=== PATIENT | female | born 1945 | race African-American/Black ===

== ENCOUNTER 2019-05-25 13:03 | Emergency (ER) | payer OTHER ==
--- NOTE | 2019-05-25 14:45 | RAD REPORT ---
EXAM DESCRIPTION: RAD - Wrist Left 3 View - 05/25/2019 2:12 pm CLINICAL HISTORY: Fall from standing, left wrist pain COMPARISON: None. FINDINGS: No fracture of the distal radius or ulna. No carpal bone fracture or acute finding seen. C arpal bone degenerative changes are present. Degenerative changes are present at the carpal - metacar pal articulations. Soft tissue swelling is present around the wrist joint. No foreign body identified . IMPRESSION: Degenerative changes are present without fracture of the left wrist.
--- NOTE | 2019-05-25 14:48 | ER ---
Nurse's Notes [facility] Name: Barb Garcia Age: 73 yrs Sex: Female : 1945 Arrival Date: 05/25/2019 Time: 13:08 Bed 14 Private MD: Diagnosis: Pain in left wrist Presentation: 05/25 13:11 Presenting complaint: Left wrist pain after mechanical fall from standing yesterday. hb Denies other injuries. Negative LOC. Transition of care: patient was not received from another setting of care. Onset of symptoms was May 24, 2019. Risk Assessment: Do you want to hurt yourself or someone else? Patient reports no desire to harm self or others. Initial Sepsis Screen: Does the patient meet any 2 criteria? No. Patient's initial sepsis screen is negative. Does the patient have a suspected source of infection? No. Patient's initial sepsis screen is negative. Care prior to arrival: Medication(s) given: Motrin, at 1030 today. 13:11 Method Of Arrival: Ambulatory hb 13:11 Acuity: EILEEN 4 hb Historical: - Allergies: 13:12 PENICILLINS; hb - PMHx: 13:12 Hypertension; Diabetes; hb - PSHx: 13:12 Tubal ligation; hb - Immunization history:: Adult Immunizations up to date. - Social history:: Smoking status: Patient/guardian denies using tobacco. - Ebola Screening: : No symptoms or risks identified at this time. Screenin:31 Abuse screen: Denies threats or abuse. Denies injuries from another. Nutritional ca1 screening: No deficits noted. Tuberculosis screening: No symptoms or risk factors identified. Fall Risk Fall in past 12 months (25 points). Assessment: 13:31 General: Appears in no apparent distress. comfortable, Behavior is calm, cooperative, ca1 appropriate for age. Pain: Complains of pain in lateral aspect of left hand, medial aspect of left hand, dorsum of left hand, dorsal aspect of left wrist and palmar aspect of left wrist Pain currently is 4 out of 10 on a pain scale. Pain began 1 day ago. Neuro: Level of Consciousness is awake, alert, obeys commands, Oriented to person, place, time, situation, Appropriate for age. Derm: Skin is intact, is healthy with good turgor, Skin is pink, warm \T\ dry. Musculoskeletal: Circulation, motion, and sensation intact. Capillary refill < 3 seconds, Range of motion: intact in all extremities. 14:35 Reassessment: Patient appears in no apparent distress at this time. Patient is alert, ca1 oriented x 3, equal unlabored respirations, skin warm/dry/pink. Vital Signs: 13:12 BP 142 / 82; Pulse 86; Resp 16; Temp 97.5; Pulse Ox 100% on R/A; Weight 47.63 kg; hb Height 5 ft. 6 in. (167.64 cm); Pain 7/10; 14:35 BP 139 / 78; Pulse 82; Resp 17 S; Pulse Ox 100% on R/A; ca1 13:12 Body Mass Index 16.95 (47.63 kg, 167.64 cm) hb ED Course: 13:08 Patient arrived in ED. mr 13:12 Triage completed. hb 13:12 Arm band placed on. hb 13:13 Syeda Law RN is Primary Nurse. ca1 13:24 Ricci Giraldo NP is PHCP. pm1 13:24 Jordan Saucedo MD is Attending Physician. pm1 13:31 Patient has correct armband on for positive identification. Bed in low position. Call ca1 light in reach. Side rails up X 1. Pulse ox on. NIBP on. 13:31 No provider procedures requiring assistance completed. Patient did not have IV access ca1 during this emergency room visit. 14:12 Wrist Left (3 View) XRAY In Process Unspecified. EDMS 14:15 Velcro wrist splint applied to left wrist. ca1 Administered Medications: No medications were administered Outcome: 14:47 Discharge ordered by . pm1 15:02 Discharged to home ambulatory. ca1 15:02 Condition: stable 15:02 Discharge instructions given to patient, Instructed on discharge instructions, follow up and referral plans. no drinking with medication, no driving heavy equipment, medication usage, Demonstrated understanding of instructions, follow-up care, medications, Prescriptions given X 1. 15:02 Patient left the ED. ca1 Signatures: Dispatcher [employer] EDDE SinghStacey Ricci Giraldo, PRADIP ELECT[employer]IC MOTOR TESTER ASSEMBLER pm1 Jaqueline Arauz RN RN Syeda Law RN RN ca1
--- NOTE | 2019-05-25 14:48 | EDPHYS ---
Physician Documentation [facility] Name: Barb Garcia Age: 73 yrs Sex: Female : 1945 Arrival Date: 05/25/2019 Time: 13:08 Bed 14 Private MD: ED Physician Jordan Saucedo HPI: 05/25 13:41 This 73 yrs old Black Female presents to ER via Ambulatory with complaints of Left pm1 Wrist Pain. 13:41 The patient or guardian reports pain. The complaints affect the left wrist diffusely. pm1 Context: The problem was sustained at home. Onset: The symptoms/episode began/occurred yesterday. Modifying factors: The symptoms are alleviated by narayan wrap, the symptoms are aggravated by movement. Associated signs and symptoms: Pertinent negatives: cyanosis distally, decreased sensation distally, numbness distally, tingling distally. Compartment Syndrome negative for numbness, tingling. The patient has not experienced similar symptoms in the past. The patient has not recently seen a physician. Patient fell backwards and braced fall with her left hand behind her. Presents with pain to left wrist. Denies pain anywhere else. No headache, head injury, neck pain, LOC. Historical: - Allergies: 13:12 PENICILLINS; hb - PMHx: 13:12 Hypertension; Diabetes; hb - PSHx: 13:12 Tubal ligation; hb - Immunization history:: Adult Immunizations up to date. - Social history:: Smoking status: Patient/guardian denies using tobacco. - Ebola Screening: : No symptoms or risks identified at this time. ROS: 13:41 Constitutional: Negative for fever, chills, and weight loss, Eyes: Negative for injury, pm1 pain, redness, and discharge, ENT: Negative for injury, pain, and discharge, Neck: Negative for injury, pain, and swelling, Cardiovascular: Negative for chest pain, palpitations, and edema, Respiratory: Negative for shortness of breath, cough, wheezing, and pleuritic chest pain, Abdomen/GI: Negative for abdominal pain, nausea, vomiting, diarrhea, and constipation, Back: Negative for injury and pain, : Negative for injury, bleeding, discharge, and swelling. 13:41 Skin: Negative for injury, rash, and discoloration, Neuro: Negative for headache, weakness, numbness, tingling, and seizure. 13:41 MS/extremity: Positive for pain, of the dorsal aspect of left wrist, Negative for decreased range of motion, deformity. Exam: 13:41 Hand exam: ROM: intact in all extremities, full active range of motion, in the left pm1 wrist, full passive range of motion, in the left wrist, Circulation is intact in all extremities. sensation intact. 13:41 Constitutional: This is a well developed, well nourished patient who is awake, alert, and in no acute distress. Head/Face: Normocephalic, atraumatic. Neck: Trachea midline, no thyromegaly or masses palpated, and no cervical lymphadenopathy. Supple, full range of motion without nuchal rigidity, or vertebral point tenderness. No Meningismus. Chest/axilla: Normal chest wall appearance and motion. Nontender with no deformity. No lesions are appreciated. Cardiovascular: Regular rate and rhythm with a normal S1 and S2. No gallops, murmurs, or rubs. Normal PMI, no JVD. No pulse deficits. Respiratory: Lungs have equal breath sounds bilaterally, clear to auscultation and percussion. No rales, rhonchi or wheezes noted. No increased work of breathing, no retractions or nasal flaring. Back: No spinal tenderness. No costovertebral tenderness. Full range of motion. Skin: Warm, dry with normal turgor. Normal color with no rashes, no lesions, and no evidence of cellulitis. 13:41 Neuro: Orientation: is normal, Motor: moves all fours. Vital Signs: 13:12 BP 142 / 82; Pulse 86; Resp 16; Temp 97.5; Pulse Ox 100% on R/A; Weight 47.63 kg; hb Height 5 ft. 6 in. (167.64 cm); Pain 7/10; 14:35 BP 139 / 78; Pulse 82; Resp 17 S; Pulse Ox 100% on R/A; ca1 13:12 Body Mass Index 16.95 (47.63 kg, 167.64 cm) hb MDM: 13:24 Patient medically screened. pm1 14:47 Data reviewed: vital signs. Data interpreted: Pulse oximetry: on room air is 100 %. pm1 Interpretation: normal. Counseling: I had a detailed discussion with the patient and/or guardian regarding: the historical points, exam findings, and any diagnostic results supporting the discharge/admit diagnosis, radiology results, the need for outpatient follow up, to return to the emergency department if symptoms worsen or persist or if there are any questions or concerns that arise at home. 05/25 13:41 Order name: Wrist Left (3 View) XRAY; Complete Time: 15:32 pm1 05/25 13:41 Order name: Wrist Splint; Complete Time: 14:15 pm1 Administered Medications: No medications were administered Disposition: 05/26 07:03 Co-signature as Attending Physician, Jordan Saucedo MD Did not see or evaluate patient. ps1 Signing chart for administrative purposes. Not an endorsement of care. . Disposition: 05/25/19 14:47 Discharged to Home. Impression: Pain in left wrist. - Condition is Stable. - Discharge Instructions: Wrist Splint, Wrist Pain, [id number]. - Prescriptions for Tramadol 50 mg Oral Tablet - take 1 tablet by ORAL route every 8 hours as needed; 12 tablet. - Medication Reconciliation Form, Thank You Letter, Antibiotic Education, Prescription Opioid Use form. - Follow up: Emergency Department; When: As needed; Reason: Worsening of condition. Follow up: Private Physician; When: 2 - 3 days; Reason: Recheck today's complaints, Continuance of care, Re-evaluation by your physician. - Problem is new. - Symptoms have improved. Signatures: Dispatcher [employer] EDMS Ricci Giraldo, TRIAL COURT JUSTICE TRIAL COURT JUSTICE pm1 Jaqueline Arauz RN RN hb Singer, Phillip, MD MD ps1 Syeda Law RN RN ca1 Corrections: (The following items were deleted from the chart) 05/25 15:02 14:47 05/25/2019 14:47 Discharged to Home. Impression: Pain in left wrist. Condition is ca1 Stable. Forms are Medication Reconciliation Form, Thank You Letter, Antibiotic Education, Prescription Opioid Use. Follow up: Emergency Department; When: As needed; Reason: Worsening of condition. Follow up: Private Physician; When: 2 - 3 days; Reason: Recheck today's complaints, Continuance of care, Re-evaluation by your physician. Problem is new. Symptoms have improved. pm1
[2019-05-25 20:50] VITALS: TEMP 97.5; O2SAT 100
[2019-05-25 20:53] VITALS: BP 139/78
== END 2019-05-25 15:02 | disposition home or self-care (01) ==
LOC: ER 13:03
DX: M25.532 Pain in left wrist (principal); I10 Essential (primary) hypertension; Z88.0 Allergy status to penicillin
CPT/HCPCS: 99284

== ENCOUNTER 2020-06-29 15:34 | Emergency (ER) | payer OTHER ==
--- NOTE | 2020-06-29 18:30 | ER ---
Nurse's Notes [facility] Name: Barb Garcia Age: 75 yrs Sex: Female : 1945 Arrival Date: 06/29/2020 Time: 15:37 Bed Waiting Private MD: Diagnosis: Presentation: 06/29 16:12 Chief complaint: Patient states: skin itching, right foot pain that has been going off sv and on. Onset: The symptoms/episode began/occurred gradually. Anaphylaxis evaluation, no signs or symptoms of anaphylaxis were noted. Risk Assessment: Do you want to hurt yourself or someone else? Patient reports no desire to harm self or others. Onset of symptoms is unknown. 16:12 Method Of Arrival: Ambulatory sv 16:12 Acuity: EILEEN 3 sv 16:13 Coronavirus screen: Client denies travel out of the [place] in the last 14 days. At this sv time, the client does not indicate any symptoms associated with coronavirus-19. Ebola Screen: No symptoms or risks identified at this time. Initial Sepsis Screen: Does the patient meet any 2 criteria? No. Patient's initial sepsis screen is negative. Does the patient have a suspected source of infection? No. Patient's initial sepsis screen is negative. Triage Assessment: 16:15 General: Appears in no apparent distress. comfortable, Behavior is calm, cooperative, sv appropriate for age. Neuro: Level of Consciousness is awake, alert, obeys commands, Oriented to person, place, time, situation, Gait is steady. Respiratory: Respiratory effort is even, unlabored. Historical: - Allergies: 16:13 PENICILLINS; sv - PMHx: 16:13 Diabetes; Hypertension; sv - PSHx: 16:13 Tubal ligation; sv Vital Signs: 16:13 BP 222 / 87; Pulse 85; Resp 16; Temp 98.8; Pulse Ox 99% ; Weight 51.71 kg; Height 5 ft. sv 6 in. (167.64 cm); 16:13 Body Mass Index 18.40 (51.71 kg, 167.64 cm) sv ED Course: 15:37 Patient arrived in ED. rg4 16:12 Arm band placed on. sv 16:13 Triage completed. sv 18:29 Vern Blank, RN is Primary Nurse. ll1 Administered Medications: No medications were administered Outcome: 18:30 Patient left the ED. sv Signatures: Jess Bernal RN RN sv Carie Parish rg4 Vern Blank RN RN ll1 Corrections: (The following items were deleted from the chart) 16:16 16:12 Acuity: EILEEN 4 sv sv 16:16 16:13 Pulse 85bpm; Resp 16bpm; Pulse Ox 99%; Temp 98.8F; 51.71 kg; Height 5 ft. 6 in.; sv BMI: 18.4; sv
[2020-06-29 20:39] VITALS: BP 222/87; TEMP 98.8; O2SAT 99
== END 2020-06-29 18:30 | disposition left against medical advice (07) ==
LOC: ER 15:34
DX: Z53.21 Procedure and treatment not carried out due to patient leaving prior to being seen by health care provider (principal)
CPT/HCPCS: 99281

== ENCOUNTER 2020-07-06 | Emergency (ER) | payer OTHER ==
--- NOTE | 2020-07-06 14:46 | ER ---
Nurse's Notes [facility] Name: Barb Garcia Age: 75 yrs Sex: Female : 1945 Arrival Date: 07/06/2020 Time: 13:28 Bed Waiting Private MD: Diagnosis: Presentation: 07/06 13:43 Chief complaint: Patient states: itching bilateral arms and thighs, mostly arms. left aa5 hand is "gritty", numb I guess. Coronavirus screen: Client denies travel out of the [place] in the last 14 days. At this time, the client does not indicate any symptoms associated with coronavirus-19. Ebola Screen: Patient negative for fever greater than or equal to 101.5 degrees Fahrenheit, and additional compatible Ebola Virus Disease symptoms Patient denies exposure to infectious person. Patient denies travel to an Ebola-affected area in the 21 days before illness onset. No symptoms or risks identified at this time. Onset of symptoms was June 30, 2020. 13:43 Method Of Arrival: Ambulatory aa5 13:43 Acuity: EILEEN 3 aa5 Historical: - Allergies: 13:47 PENICILLINS; aa5 - PMHx: 13:47 Diabetes; Hypertension; aa5 - PSHx: 13:47 Tubal ligation; aa5 Vital Signs: 13:43 BP 192 / 81; Pulse 76; Resp 20; Pulse Ox 100% on R/A; Weight 51.71 kg; Height 5 ft. 6 aa5 in. (167.64 cm); Pain 0/10; 13:43 Temp 99(O); aa5 13:43 Body Mass Index 18.40 (51.71 kg, 167.64 cm) aa5 ED Course: 13:28 Patient arrived in ED. ag5 13:28 Abilio Rucker MD is Attending Physician. kdr 13:46 Triage completed. aa5 Administered Medications: No medications were administered Outcome: 14:45 Patient left the ED. dm5 Signatures: Stephanie Pollard, RN RN dm5 Abilio Rucker MD MD kdr Calderon, Audri, RN RN aa5 Kulwant Bardales ag5
== END 2020-07-06 14:45 | disposition left against medical advice (07) ==
DX: Z53.21 Procedure and treatment not carried out due to patient leaving prior to being seen by health care provider (principal)
CPT/HCPCS: 99281

== ENCOUNTER 2020-07-14 13:29 | Emergency (ER) | payer OTHER ==
--- NOTE | 2020-07-14 16:19 | EDPHYS ---
Physician Documentation [facility] Name: Barb Garcia Age: 75 yrs Sex: Female : 1945 Arrival Date: 07/14/2020 Time: 13:31 Bed 8 Private MD: ED Physician Abilio Rucker HPI: 07/14 16:17 This 75 yrs old Black Female presents to ER via Ambulatory with complaints of Itching. kb 16:17 The patient's rash thought to be caused by itching. The rash is located on the right kb knee and right elbow and left elbow. The rash can be described as itchy skin. Onset: The symptoms/episode began/occurred last week. Associated signs and symptoms: Pertinent positives: itching, Pertinent negatives: burning sensation, difficulty breathing, fever, nausea, Pain swelling of lips, swelling of throat, swelling of tongue, vomiting, wheezing. Severity of symptoms: At their worst the symptoms were mild in the emergency department the symptoms are unchanged. The patient has not experienced similar symptoms in the past. The patient has not recently seen a physician. Pt reports she has had itching to bilateral elbows and right knee for a week. . Historical: - Allergies: 13:45 PENICILLINS; em - PMHx: 13:45 Diabetes; Hypertension; em - PSHx: 13:45 Tubal ligation; em - Immunization history:: Adult Immunizations up to date. - Social history:: Smoking status: Patient denies any tobacco usage or history of. ROS: 16:06 Constitutional: Negative for fever, chills, and weight loss, Cardiovascular: Negative kb for chest pain, palpitations, and edema, Respiratory: Negative for shortness of breath, cough, wheezing, and pleuritic chest pain, Abdomen/GI: Negative for abdominal pain, nausea, vomiting, diarrhea, and constipation, MS/Extremity: Negative for injury and deformity, Neuro: Negative for headache, weakness, numbness, tingling, and seizure. 16:06 Skin: Positive for of the right elbow, left elbow and right knee, itching. Exam: 16:16 Constitutional: This is a well developed, well nourished patient who is awake, alert, kb and in no acute distress. Head/Face: Normocephalic, atraumatic. Chest/axilla: Normal chest wall appearance and motion. Nontender with no deformity. No lesions are appreciated. Cardiovascular: Regular rate and rhythm with a normal S1 and S2. No gallops, murmurs, or rubs. Normal PMI, no JVD. No pulse deficits. Respiratory: Lungs have equal breath sounds bilaterally, clear to auscultation and percussion. No rales, rhonchi or wheezes noted. No increased work of breathing, no retractions or nasal flaring. Abdomen/GI: Soft, non-tender, with normal bowel sounds. No distension or tympany. No guarding or rebound. No evidence of tenderness throughout. MS/ Extremity: Pulses equal, no cyanosis. Neurovascular intact. Full, normal range of motion. Neuro: Awake and alert, GCS 15, oriented to person, place, time, and situation. Cranial nerves II-XII grossly intact. Motor strength 5/5 in all extremities. Sensory grossly intact. Cerebellar exam normal. Normal gait. 16:16 Skin: dryness noted to skin on bilateral elbows and right knee.. Vital Signs: 13:43 BP 217 / 84; Pulse 75; Resp 18; Temp 98.3(O); Pulse Ox 100% on R/A; Weight 51.71 kg; em Height 5 ft. 6 in. (167.64 cm); Pain 0/10; 16:04 BP 198 / 86; Pulse 75; ss 13:43 Body Mass Index 18.40 (51.71 kg, 167.64 cm) em MDM: 15:52 Patient medically screened. kb 16:04 Data reviewed: vital signs, nurses notes. Data interpreted: Pulse oximetry: on room air kb is 100 %. Interpretation: normal. Counseling: I had a detailed discussion with the patient and/or guardian regarding: the historical points, exam findings, and any diagnostic results supporting the discharge/admit diagnosis, the need for outpatient follow up, a family practitioner, to return to the emergency department if symptoms worsen or persist or if there are any questions or concerns that arise at home. ED course: Pt is asymptomatic of BP. States it runs high sometimes, but she does not take anything for it. Educated to follow up with PCP for management. Pt denies shortness of breath, chest pain, headache. States she has itching to bilateral elbows and above right knee. Dry skin noted to those places and lotion given. . Administered Medications: No medications were administered Disposition: 17:45 Co-signature as Attending Physician, Abilio Rucker MD I agree with the assessment and kdr plan of care. Disposition: 07/14/20 16:19 Discharged to Home. Impression: Pruritus - secondary to dry skin. - Condition is Stable. - Discharge Instructions: Pruritus. - Medication Reconciliation Form, Thank You Letter, Antibiotic Education, Prescription Opioid Use form. - Follow up: Emergency Department; When: As needed; Reason: Worsening of condition. Follow up: Private Physician; When: 2 - 3 days; Reason: Recheck today's complaints, Continuance of care, Re-evaluation by your physician. Signatures: Yakelin Munoz, DIGITAL ASSOCIATE MEDIA DIRECTOR-C DIGITAL ASSOCIATE MEDIA DIRECTOR-Abilio Babcock MD MD kdr Eron Marcano, RN RN em Caio Schofield jp3 Corrections: (The following items were deleted from the chart) 16:46 16:19 07/14/2020 16:19 Discharged to Home. Impression: Pruritus - secondary to dry jp3 skin. Condition is Stable. Forms are Medication Reconciliation Form, Thank You Letter, Antibiotic Education, Prescription Opioid Use. Follow up: Emergency Department; When: As needed; Reason: Worsening of condition. Follow up: Private Physician; When: 2 - 3 days; Reason: Recheck today's complaints, Continuance of care, Re-evaluation by your physician. kb
--- NOTE | 2020-07-14 16:19 | ER ---
Nurse's Notes [facility] Name: Barb Garcia Age: 75 yrs Sex: Female : 1945 Arrival Date: 07/14/2020 Time: 13:31 Bed 8 Private MD: Diagnosis: Pruritus-secondary to dry skin Presentation: 07/14 13:43 Chief complaint: Patient states: itching that started 1 week ago, reports itching in em toi. legs and arms. Coronavirus screen: Client denies travel out of the [place] in the last 14 days. Ebola Screen: Patient negative for fever greater than or equal to 101.5 degrees Fahrenheit, and additional compatible Ebola Virus Disease symptoms Patient denies exposure to infectious person. Patient denies travel to an Ebola-affected area in the 21 days before illness onset. No symptoms or risks identified at this time. Initial Sepsis Screen: Does the patient meet any 2 criteria? No. Patient's initial sepsis screen is negative. Does the patient have a suspected source of infection? No. Patient's initial sepsis screen is negative. Risk Assessment: Do you want to hurt yourself or someone else? Patient reports no desire to harm self or others. Onset of symptoms was July 08, 2020. 13:43 Method Of Arrival: Ambulatory em 13:43 Acuity: EILEEN 2 em Historical: - Allergies: 13:45 PENICILLINS; em - PMHx: 13:45 Diabetes; Hypertension; em - PSHx: 13:45 Tubal ligation; em - Immunization history:: Adult Immunizations up to date. - Social history:: Smoking status: Patient denies any tobacco usage or history of. Screenin:04 Abuse screen: Denies threats or abuse. Denies injuries from another. Nutritional ss screening: No deficits noted. Tuberculosis screening: Never had TB. Fall Risk None identified. Assessment: 16:04 General: Appears in no apparent distress. comfortable, Behavior is calm, cooperative, ss Denies fever, feeling ill, fatigue, chills. Pain: Denies pain. Neuro: Level of Consciousness is awake, alert, obeys commands, Oriented to person, place, time, situation, Automatic Door Mechanic are equal bilaterally Moves all extremities. Full function Gait is steady, Speech is normal, Facial symmetry appears normal, Pupils are PERRLA. Cardiovascular: Capillary refill < 3 seconds is brisk in bilateral fingers Chest pain is denied. Respiratory: Denies cough, shortness of breath pain with respiration, pain with cough, pain with movement. GI: No signs and/or symptoms were reported involving the gastrointestinal system. Abdomen is non-distended, Patient currently denies abdominal pain, nausea. : No signs and/or symptoms were reported regarding the genitourinary system. EENT: Oral mucosa is moist. Derm: Skin is intact, is healthy with good turgor, Skin is dry, Skin is pink, warm \\T\\ dry. normal, Reports dry itching skin, "for a while". Vital Signs: 13:43 BP 217 / 84; Pulse 75; Resp 18; Temp 98.3(O); Pulse Ox 100% on R/A; Weight 51.71 kg; em Height 5 ft. 6 in. (167.64 cm); Pain 0/10; 16:04 BP 198 / 86; Pulse 75; ss 13:43 Body Mass Index 18.40 (51.71 kg, 167.64 cm) em ED Course: 13:31 Patient arrived in ED. ds1 13:45 Triage completed. em 13:45 Arm band placed on. em 15:52 Yakelin Munoz FNP-C is PHCP. kb 15:52 Abilio Rucker MD is Attending Physician. kb 16:04 Shirley Damian, RN is Primary Nurse. ss 16:04 Patient has correct armband on for positive identification. Bed in low position. Call ss light in reach. 16:04 No provider procedures requiring assistance completed. Patient did not have IV access ss during this emergency room visit. Administered Medications: No medications were administered Outcome: 16:19 Discharge ordered by . kb 16:46 Patient left the ED. jp3 Signatures: Yakelin Munoz FNP-C FNP-Ckb Munoz, Edgar, HAYDEE RN em Julia Torres ds1 Shirley Damian, HAYDEE RN Caio Schofield jp3
[2020-07-14 19:39] VITALS: BP 217/84; TEMP 98.3; O2SAT 100
== END 2020-07-14 16:46 | disposition home or self-care (01) ==
LOC: ER 13:29
DX: L85.3 Xerosis cutis (principal); I10 Essential (primary) hypertension; Z88.0 Allergy status to penicillin
CPT/HCPCS: 99281

== ENCOUNTER 2023-03-27 20:01 | Observation (INO) | payer OTHER ==
[2023-03-27 20:31] LABS: Absolute Lymphocytes (CBC) 0.6 K/uL (0.7-4.9); Hematocrit 27.4 % (36.0-45.0); Lymphocytes % 6.4 % (15.3-44.8); MCV 84.6 fL (80-100); MPV 7.4 fL (7.6-11.3); Platelets 509 thou/uL (152-406); RBC Red Blood Cell Count 3.23 M/uL (3.86-4.86)
[2023-03-27 20:47] LABS: Albumin 2.2 g/dL (3.4-5.0); Bilirubin Total 0.2 mg/dL (0.2-1.0); Potassium 4.5 mEq/L (3.5-5.1); Protein, Total 5.7 g/dL (6.4-8.2)
--- NOTE | 2023-03-27 22:00 | RAD REPORT ---
EXAM DESCRIPTION: CT - Abdomen Pelvis W Contrast - 03/27/2023 9:16 pm CLINICAL HISTORY: ABD PAIN COMPARISON: Abdomen Pelvis Wo Contrast dated 03/13/2023; Abdomen W Erect dated 03/19/2023 TECHNIQUE: Thin cut axial CT imaging of the abdomen and pelvis was performed following intravenous a dministration of 95 mL Isovue 300. Multiplanar reformats were generated and reviewed. All CT scans are performed using dose optimization technique as appropriate and may include automated exposure control or mA/KV adjustment according to patient size. FINDINGS: Layering small bilateral pleural effusions. Underlying airspace opacities with volume loss larger on the right. The liver, spleen, adrenal glands, and pancreas show no suspicious findings. Gallbladder and biliary tree are also without suspicious finding. Symmetric renal function is seen with no hydronephrosis or suspicious renal mass. Sequelae of small bowel resection with anastomotic suture line in the left upper quadrant since the p rior CT. Diffuse small bowel dilation with air-fluid levels. Short segments of nondistended small bow el are seen in the central abdomen right of midline, however there is dilated small bowel distal to t his. There is fluid distention of the cecum as well. A lobulated exophytic mass is seen within the l umen of the ascending colon, demonstrating heterogeneous enhancement, measuring 7.2 cm in greatest ax ial dimension, which was seen previously. There is relatively abrupt transition to nondistended dista l ascending colon, just above the level of the mass. This is best appreciated on coronal image 60 ser ies 202. No free air, or fluid collections. Moderate free ascites. Left inguinal hernia has been redu joseline. Retroverted uterus. No bulky lymphadenopathy. The urinary bladder is without significant finding . No suspicious bony findings. IMPRESSION: Progressive small bowel dilation, suggestive of ileus. Short segments of nondistended markel wel seen in the central abdomen right of midline, with segments of dilated bowel distal to this. Re- demonstration of exophytic lobulated enhancing mass within the proximal ascending colon. This con cerning for malignancy. Relatively abrupt transition to nondistended distal ascending colon just abov e the level of the mass. The mass may therefore be resulting in incomplete obstruction. Small layering bilateral pleural effusions with underlying airspace opacification, favored to represe nt atelectasis. The findings were communicated to Yakelin Munoz on 03/27/2023 at 21:54 hours.
--- NOTE | 2023-03-27 22:44 | ER ---
Nurse's Notes [facility] Name: Barb Garcia Age: 77 yrs Sex: Female : 1945 Arrival Date: 03/27/2023 Time: 20:01 Bed 15 Private MD: Diagnosis: Abdominal pain, Generalized Presentation: 03/27 20:06 Chief complaint: EMS states: Family called due to patient reporting a nagging stomach jb4 pain after eating chicken noodle soup. Recently had hernia repair surgery. Pt reports pain is 2/10. BGL was 190, has a 20g to the left AC. Coronavirus screen: At this time, the client does not indicate any symptoms associated with coronavirus-19. Ebola Screen: No symptoms or risks identified at this time. Initial Sepsis Screen: Does the patient meet any 2 criteria? No. Patient's initial sepsis screen is negative. Does the patient have a suspected source of infection? No. Patient's initial sepsis screen is negative. Risk Assessment: Do you want to hurt yourself or someone else? Patient reports no desire to harm self or others. Onset of symptoms was March 27, 2023. Transition of care: patient was not received from another setting of care. 20:06 Method Of Arrival: [facility] jb4 20:06 Acuity: EILEEN 3 jb4 Historical: - Allergies: 20:09 PENICILLINS; jb4 - Home Meds: 20:09 amlodipine oral [Active]; Januvia oral [Active]; stool softner [Active]; jb4 - PMHx: 20:09 Diabetes; Hypertension; jb4 - Immunization history:: Adult Immunizations up to date. Screenin/21 04:59 [facility] ED Fall Risk Assessment (Adult) Score/Fall Risk Level 0 - 2 = Low Risk. Abuse ha1 screen: Denies threats or abuse. Denies injuries from another. Nutritional screening: No deficits noted. Tuberculosis screening: No symptoms or risk factors identified. Assessment: 03/27 20:15 General: Appears in no apparent distress. comfortable, Behavior is calm, cooperative, jb4 appropriate for age. Pain: Complains of pain in abdomen Pain does not radiate. Pain currently is 2 out of 10 on a pain scale. Quality of pain is described as aching. Neuro: Level of Consciousness is awake, alert, Oriented to person, place, time, situation. Cardiovascular: Patient's skin is warm and dry. Respiratory: Airway is patent Respiratory effort is even, unlabored, Respiratory pattern is regular, symmetrical. GI: No signs and/or symptoms were reported involving the gastrointestinal system. : No signs and/or symptoms were reported regarding the genitourinary system. EENT: No signs and/or symptoms were reported regarding the EENT system. Derm: Skin is intact, Skin is pink, warm \T\ dry. Musculoskeletal: Circulation, motion, and sensation intact. Range of motion: intact in all extremities. 21:04 Reassessment: Patient appears in no apparent distress at this time. Patient and/or jb4 family updated on plan of care and expected duration. Pain level reassessed. Patient is alert, oriented x 3, equal unlabored respirations, skin warm/dry/pink. 22:18 Reassessment: Patient appears in no apparent distress at this time. Patient and/or jb4 family updated on plan of care and expected duration. Pain level reassessed. Patient is alert, oriented x 3, equal unlabored respirations, skin warm/dry/pink. 22:40 Reassessment: Attempted to call both Myla and Mandy Garcia. there was no answer. jb4 Left a message asking Myla Garcia to call the ER. 23:26 Reassessment: Patient appears in no apparent distress at this time. Patient and/or jb4 family updated on plan of care and expected duration. Pain level reassessed. Patient is alert, oriented x 3, equal unlabored respirations, skin warm/dry/pink. D/c pending ride home. Spoke with DJ (Son in Law). Says he will call us back. 03/28 01:25 General: Attempted to call [facility]. no answer, unable to leave voice message due to mailbox as6 not being set up. 02:19 Reassessment: pt is sleeping in bed, respirations are even and unlabored with no s/s of jb4 pain or distress noted. Attempted to call Mandy and Myla Garcia, no answer, left a message asking both to call the ER. 03:48 Reassessment: Patient appears in no apparent distress at this time. No changes from jb4 previously documented assessment. Patient and/or family updated on plan of care and expected duration. Pain level reassessed. Vital Signs: 03/27 20:06 BP 142 / 95; Pulse 74; Resp 16; Temp 97.7(O); Pulse Ox 100% on R/A; Weight 44.45 kg jb4 (R); Pain 2/10; 21:04 BP 144 / 85; Pulse 73; Resp 16; Pulse Ox 98% on R/A; jb4 22:30 BP 146 / 63; Pulse 76; Resp 16; Pulse Ox 99% on R/A; jb4 23:26 BP 143 / 60; Pulse 81; Resp 16; Pulse Ox 99% on R/A; jb4 03/28 02:21 BP 149 / 61; Pulse 88; Resp 16; Pulse Ox 100% on R/A; jb4 03:48 BP 143 / 51; Pulse 78; Resp 16; Pulse Ox 98% on R/A; jb4 03/27 20:06 Pain Scale: Adult 4 ED Course: 03/27 20:03 Patient arrived in ED. as6 20:03 [facility]C [facility] kb 20:04 Fazal Woodward MD is Attending Physician. kb 20:06 Hemanth Gonzalez, RN is Primary Nurse. jb4 20:09 Triage completed. jb4 20:09 Arm band placed on right wrist. jb4 21:17 CT Abd/Pelvis - IV Contrast Only In Process Unspecified. EDIL 03/28 02:37 Osman Montanez is Hospitalizing Provider. kb 05:00 Bed in low position. Call light in reach. Provided Education on: need for admit. ha1 05:00 No provider procedures requiring assistance completed. Patient admitted, IV remains in ha1 place. Administered Medications: No medications were administered Medication: 04:59 VIS not applicable for this client. ha1 Outcome: 03/27 22:44 Discharge ordered by . kb 03/28 02:37 Decision to Hospitalize by Provider. kb 05:00 Admitted to Med/surg ha1 05:00 Condition: stable 05:00 Instructed on the need for admit, 05:00 Patient left the ED. ha1 Signatures: Dispatcher [employer] EDIL Yakelin Munoz FNP-C FNP-Ckb Bryson, James, RN RN jb4 Lincoln Hyman RN RN as6 Yoly Crawley RN RN ha1 Corrections: (The following items were deleted from the chart) 03/27 23: 23:26 Reassessment: Patient appears in no apparent distress at this time. Patient jb4 and/or family updated on plan of care and expected duration. Pain level reassessed. Patient is alert, oriented x 3, equal unlabored respirations, skin warm/dry/pink. jbDevaughn 03/28 00:42 03/27 23:26 Reassessment: Patient appears in no apparent distress at this time. Patient jb4 and/or family updated on plan of care and expected duration. Pain level reassessed. Patient is alert, oriented x 3, equal unlabored respirations, skin warm/dry/pink. D/c pending ride home. jb4
--- NOTE | 2023-03-27 22:44 | EDPHYS ---
Physician Documentation [facility] Name: Barb Garcia Age: 77 yrs Sex: Female : 1945 Arrival Date: 03/27/2023 Time: 20:01 Bed 15 Private MD: ED Physician Fazal Woodward HPI: 03/27 21:10 This 77 yrs old Black Female presents to ER via EMS with complaints of abdominal pain. kb 21:10 The patient presents with abdominal pain. Onset: The symptoms/episode began/occurred kb just prior to arrival. The symptoms do not radiate. Associated signs and symptoms: none. Modifying factors: The symptoms are alleviated by nothing, the symptoms are aggravated by nothing. Severity of pain: At its worst the pain was mild in the emergency department the pain has resolved. The patient has not experienced similar symptoms in the past. The patient has been recently seen by a physician:. EMS reports family called them because pt was discharged home yesterday after having hernia repair and started having abd pain after eating soup. Pt denies abd pain and states she wants to go back home. Historical: - Allergies: 20:09 PENICILLINS; jb4 - Home Meds: 20:09 amlodipine oral [Active]; Januvia oral [Active]; stool softner [Active]; jb4 - PMHx: 20:09 Diabetes; Hypertension; jb4 - Immunization history:: Adult Immunizations up to date. ROS: 21:09 Constitutional: Negative for fever, chills, and weight loss, kb 21:09 Abdomen/GI: Positive for abdominal pain, 21:09 All other systems are negative, Exam: 21:09 Constitutional: This is a well developed, well nourished patient who is awake, alert, kb and in no acute distress. Head/Face: Normocephalic, atraumatic. ENT: Moist Mucous membranes Cardiovascular: Regular rate Respiratory: Respirations even and unlabored. No increased work of breathing. Talking in full sentences Abdomen/GI: Soft, non-tender. No distention Skin: Warm, dry with normal turgor. Normal color. MS/ Extremity: Pulses equal, no cyanosis. Neurovascular intact. Full, normal range of motion. Neuro: Awake and alert, GCS 15, oriented to person, place, time, and situation. Moves all extremities. Vital Signs: 20:06 BP 142 / 95; Pulse 74; Resp 16; Temp 97.7(O); Pulse Ox 100% on R/A; Weight 44.45 kg jb4 (R); Pain 2/10; 21:04 BP 144 / 85; Pulse 73; Resp 16; Pulse Ox 98% on R/A; jb4 22:30 BP 146 / 63; Pulse 76; Resp 16; Pulse Ox 99% on R/A; jb4 23:26 BP 143 / 60; Pulse 81; Resp 16; Pulse Ox 99% on R/A; jb4 03/28 02:21 BP 149 / 61; Pulse 88; Resp 16; Pulse Ox 100% on R/A; jb4 03:48 BP 143 / 51; Pulse 78; Resp 16; Pulse Ox 98% on R/A; jb4 03/27 20:06 Pain Scale: Adult jb4 MDM: 03/27 20:04 Patient medically screened. kb 21:09 Differential diagnosis: bowel obstruction, non-specific abd pain, abscess, post kb surgical pain. Data reviewed: vital signs, nurses notes. 22:44 Consideration of Admission/Observation Escalation of care including kb admission/observation considered. admission considered, but discussed CT findings with Dr Belcher who recommends pt follow up with him in office next week . Management of patient was discussed with the following: Die Finisher: Dr Belcher. Historians other than the Patient: EMS: [facility]. Counseling: I had a detailed discussion with the patient and/or guardian regarding the historical points, exam findings, and any diagnostic results supporting the discharge/admit diagnosis, lab results, radiology results, the need for outpatient follow up, a general surgeon, to return to the emergency department if symptoms worsen or persist or if there are any questions or concerns that arise at home. 03/28 02:32 External Records Reviewed: Inpatient record: Ye's progress notes and Lisseth's kb discharge summary from recent admission reviewed. . ED course: Family that RN was able to get a hold of upon pt's discharge stated they would call back when they had arrangement to get pt home. Since then we have been unable to get in touch with any of pt's family. Discussed with Dr Woodward who recommends admitting pt. . 02:37 Management of patient was discussed with the following: Hospitalist: [facility] accepts kb pt for admission. 03/27 20:04 Order name: CBC with Diff; Complete Time: 20:33 kb 03/27 20:04 Order name: CMP; Complete Time: 20:53 kb 03/27 20:04 Order name: CT Abd/Pelvis - IV Contrast Only; Complete Time: 22:21 kb 03/27 20:04 Order name: IV Saline Lock; Complete Time: 20:18 kb 03/27 20:04 Order name: Labs collected and sent; Complete Time: 20:18 kb Administered Medications: No medications were administered Disposition Summary: 03/28/23 02:37 Hospitalization Ordered Notes: Hospitalization Status: Observation kb Provider: Osman Montanez Location: Telemetry/MedSurg (observation)(03/28/23 02:37) kb Condition: Stable(03/28/23 02:37) kb Problem: an ongoing problem kb Symptoms: are unchanged kb Bed/Room Type: Standard Room Assignment: [facility](03/28/23 03:47) Diagnosis - Abdominal pain, Generalized kb Forms: - Medication Reconciliation Form kb - SBAR form kb - Leadership Thank You Letter kb Signatures: Dispatcher [employer] EDYakelin Sosa, ONLINE COMMUNICATIONS MANAGER-C ONLINE COMMUNICATIONS MANAGER-Gayatri Hodge RN RN Hemanth Marquez, RN RN jb4 Corrections: (The following items were deleted from the chart) 02:37 03/27 22:44 Home kb 03/28 02:37 03/27 22:44 Stable kb 03/28 02:37 03/27 22:44 Abdominal pain, unspecified kb 03/28 03:47 02:37 kb
--- NOTE | 2023-03-28 02:41 | P.HP ---
Certification for Inpatient Patient admitted to: Inpatient With expected LOS: <2 Midnights Patient will require the following post-hospital care: None Practitioner: I am a practitioner with admitting privileges, knowledge of patient current condition, hospital course, and medical plan of care. Services: Services provided to patient in accordance with Admission requirements found in Title 42 Section 412.3 of the Code of Federal Regulations Patient History Date of Service: 03/28/23 Reason for admission: abdominal pain History of Present Illness: 77 yrs old Black Female presents past medical history of Diabetes, Hypertension presents to the emergency room with abdominal pain. She reports mild nausea. She was recently discharged with abdominal pain with a noted abdominal mass. CT ABD Pelvis high-grade small bowel obstruction showed left inguinal hernia, irregular masslike thickening approximately 7.5 cm in length, concerning for malignancy. Blood work showed acute renal failure. Family reports patient needs placement unable to take care of patient at home. She denies Fever, chills, chest pain, shortness of breath. Plan to admit for abdominal pain, abdominal mass small bowel obstruction,ascending colon mass, anemia of chronic disease, acute on chronic renal insufficiency. Consult 7th grade social studies teacher for discharge planning Allergies Penicillins Allergy (Verified 03/17/23 00:27) Unknown Home Medications: Amlodipine [Norvasc*] 10 mg PO DAILY #30 tab 03/26/23 Metoprolol Tartrate [Lopressor*] 25 mg PO BID 6AM 6PM #60 tab 03/26/23 levoFLOXacin [Levaquin] 500 mg PO DAILY #5 tab 03/26/23 metroNIDAZOLE [Metronidazole] 500 mg PO TID #15 tab 03/26/23 - Past Medical/Surgical History Diabetic: Yes -: Hypertension -: Diabetes -: Tubal ligation - Social History Alcohol use: No CD- Drugs: No Caffeine use: No Review of Systems 10-point ROS is otherwise unremarkable Physical Examination - Physical Exam General: Alert, In no apparent distress, Oriented x3 HEENT: Atraumatic, Normocephalic, PERRLA Neck: Supple, 2+ carotid pulse no bruit Respiratory: Clear to auscultation bilaterally, Normal air movement Cardiovascular: No edema, Normal pulses Capillary refill: <2 Seconds Gastrointestinal: Normal bowel sounds, Non-distended Musculoskeletal: No clubbing, No swelling Integumentary: No rashes, No breakdown Neurological: Normal speech, Normal strength at 5/5 x4 extr - Studies Laboratory Data (last 24 hrs) 03/27/23 03/27/23 20:11 20:11 WBC 8.70 Hgb 8.9 L Hct 27.4 L Plt Count 509 H Sodium 137 Potassium 4.5 BUN 26 H Creatinine 1.40 H Glucose 162 H Total Bilirubin 0.2 AST 20 ALT 20 Alkaline Phosphatase 429 H Assessment and Plan - Plan Assessment and plan Adominal pain SBO, now s/p open left inguinal hernia repair with Small Bowel Resection, repair of small bowel enterotomy (03/14) Incarcerated left inguinal hernia Diarrhea [place] on CKD 3 Thrombocytopenia Chronic anemia. iron deficiency Hypertension Hyperglycemia, h/o NIDDM2 Incidental 7.5 cm ascending colon mass Small bowel obstruction, now s/p open left inguinal hernia repair with Small Bowel Resection, repair of small bowel enterotomy (03/14) incarcerated left inguinal hernia Diarrhea s/p laparoscopy with conversion to laparotomy, open left inguinal hernia repair with Small Bowel Resection, repair of small bowel enterotomy (03/14) NGT removed 03/18 meropenem (03/14-03/22) de-escalated to levaquin / Flagyl (03/23-); continue x10 days total advance diet; dc'd TPN 03/21 PT/OT consult improving slowly ISRAEL on CKD 3/metabolic acidosis Nephrology is following. Acidosis resolved. Thrombocytopenia Chronic anemia. iron deficiency unclear etiology, downtrending since admission, sepsis vs surgery vs HIT - less likely monitor for signs of bleeding severe iron deficiency, continue IV iron Hypertension. continue home medications as appropriate Hydralazine as needed for BP spikes. Hypoglycemia, improved Hyperglycemia, h/o NIDDM2 She is on hypoglycemia protocol. SSI as needed to be continued. Incidental 7.5 cm ascending colon mass CT abdomen (03/13): masslike thickening approximately 7.5 cm in length, concerning for malignancy. recommend f/u outpatient with Dr. Belcher (General surgery) or GI for colonoscopy to evaluate the colon mass. Diet advance as tolerated Full code DVT SCDs Discharge Plan: Jail Plan to discharge in: 48 Hours - Advance Directives Does patient have a Living Will: No Does patient have a Durable POA for Healthcare: No - Code Status/Comfort Care Code Status Assessed: Yes Code Status: Full Code Physician Review: Patient Assessed, Agree with Above Assessment and Plan Critical Care: No Time Spent Managing Pts Care (In Minutes): 50
[2023-03-28] MEDS ORDERED: D50W 25 GM/50 ML SYRINGE IV PRN (04:03)
[2023-03-28] MEDS ORDERED: GLUCAGON 1 MG/VIAL IM PRN (04:03)
[2023-03-28] MEDS ORDERED: MORPHINE 2 MG/ML SYR IV PRN (04:03)
[2023-03-28] MEDS ORDERED: D10W 125 ML IV PRN (04:08)
[2023-03-28 05:23] VITALS: BMI 16.4
[2023-03-28] MEDS: INSULIN -REGULAR HUMAN 50 UNIT/0.5 ML ML SQ SCH ×4 (07:30→20:14)
[2023-03-28 08:38] VITALS: O2SAT 97
--- NOTE | 2023-03-28 15:49 | P.PN ---
Date of Service: 03/28/23 Patient seen and examined. She has no complaint. She is tolerating diet. Abdomen is benign on examination. General surgery Dr. Belcher of input appreciated. Plan: Supportive measures. PT consult. Social service consulted for disposition.
[2023-03-28] MEDS: levoFLOXacin 500 MG TAB PO SCH (16:38)
[2023-03-28] MEDS: metroNIDAZOLE 500 MG TABLET PO SCH ×2 (16:39→20:14)
[2023-03-28] MEDS: ENSURE CLEAR 200 ML CAN PO SCH ×2 (16:39→20:15)
[2023-03-28] MEDS: AMLODIPINE 10 MG TAB PO SCH (16:39)
[2023-03-28] MEDS: METOPROLOL TAR 25 MG TAB PO SCH (18:16)
[2023-03-29 02:31] LABS: Absolute Lymphocytes (CBC) 0.7 K/uL (0.7-4.9); Hematocrit 24.6 % (36.0-45.0); Lymphocytes % 9.5 % (15.3-44.8); MCV 83.7 fL (80-100); MPV 7.6 fL (7.6-11.3); Platelets 447 thou/uL (152-406); RBC Red Blood Cell Count 2.93 M/uL (3.86-4.86)
[2023-03-29 02:43] LABS: Magnesium 2.1 mg/dL (1.6-2.4); Potassium 4.4 mEq/L (3.5-5.1)
[2023-03-29] MEDS: METOPROLOL TAR 25 MG TAB PO SCH (05:59)
[2023-03-29] MEDS: INSULIN -REGULAR HUMAN 50 UNIT/0.5 ML ML SQ SCH (07:30)
[2023-03-29 08:15] VITALS: BP 160/73; TEMP 97.7
[2023-03-29] MEDS: metroNIDAZOLE 500 MG TABLET PO SCH (08:24)
[2023-03-29] MEDS: levoFLOXacin 500 MG TAB PO SCH (08:24)
[2023-03-29] MEDS: ENSURE CLEAR 200 ML CAN PO SCH (08:24)
[2023-03-29] MEDS: AMLODIPINE 10 MG TAB PO SCH (08:24)
--- NOTE | 2023-03-29 09:25 | P.DS ---
Admission Date: 03/28/23 Discharge Date: 03/29/23 Disposition: TRANSFER TO INPATIENT REHAB Reason for Admission: abdominal pain - Problems (1) Intraabdominal mass Status: Acute (2) Anemia Status: Acute (3) Inguinal hernia of left side with gangrene and obstruction Status: Acute Brief History of Present Illness: 77 yrs old Black Female presents past medical history of Diabetes, Hypertension presents to the emergency room with abdominal pain. She reportsedild nausea. She was recently discharged from [facility] after surgery for SBO with a noted abdominal mass. Family reports patient needs placement unable to take care of patient at home. She denies Fever, chills, chest pain, shortness of breath. Patient hospitalized for further management. Hospital Course: Patient placed on supportive measures, she tolerated diet and had bowel movement. Patient was asymptomatic during the hospital stay. She has anemia and impaired renal function which was stable during the hospital stay. Patient has been accepted to inpatient rehab. Vitals are stable for transfer. Vital Signs/Physical Exam: Temp Pulse Resp BP Pulse Ox 97.7 F 76 16 160/73 H 100 03/29/23 08:00 03/29/23 08:00 03/29/23 08:00 03/29/23 08:00 03/29/23 08:00 General: Alert, In no apparent distress, Oriented x3, Other (Frail-appearing) HEENT: Mucous membr. moist/pink Neck: JVD not distended Respiratory: Clear to auscultation bilaterally, Normal air movement Cardiovascular: No edema, Regular rate/rhythm, Normal S1 S2 Gastrointestinal: Soft and benign, Non-distended Musculoskeletal: No swelling Neurological: Normal strength at 5/5 x4 extr Laboratory Data at Discharge: WBC 7.80 thou/uL (4.3-10.9) 03/29/23 02:14 Hgb 8.5 g/dL (12.0-15.0) L 03/29/23 02:14 Hct 24.6 % (36.0-45.0) L 03/29/23 02:14 Plt Count 447 thou/uL (152-406) H 03/29/23 02:14 Sodium 140 mEq/L (136-145) 03/29/23 02:14 Potassium 4.4 mEq/L (3.5-5.1) 03/29/23 02:14 BUN 27 mg/dL (7-18) H 03/29/23 02:14 Creatinine 1.44 mg/dL (0.55-1.02) H 03/29/23 02:14 Glucose 90 mg/dL (74-106) 03/29/23 02:14 Magnesium 2.1 mg/dL (1.6-2.4) 03/29/23 02:14 Total Bilirubin 0.2 mg/dL (0.2-1.0) 03/27/23 20:11 AST 20 U/L (15-37) 03/27/23 20:11 ALT 20 U/L (13-56) 03/27/23 20:11 Alkaline Phosphatase 429 U/L (45-117) H 03/27/23 20:11 Home Medications: Amlodipine [Norvasc*] 10 mg PO DAILY #30 tab 03/26/23 Metoprolol Tartrate [Lopressor*] 25 mg PO BID 6AM 6PM #60 tab 03/26/23 levoFLOXacin [Levaquin*] 500 mg PO DAILY #5 tab 03/26/23 metroNIDAZOLE [Metronidazole] 500 mg PO TID #15 tab 03/26/23 Ensure Clear 237 ml PO TID can 03/29/23 Insulin -Regular Human [Novolin -R*] See Protocol SQ ACHS ml 03/29/23 Followup: NONE,NONE [Primary Care Provider] - Time spent managing pt's care (in minutes): 25
== END 2023-03-29 10:00 ==
LOC: ER 20:01 → INTOOBSV 03-28 02:37 → ERHOLD 03-28 02:37 → 2ND 03-28 03:56
PROVIDERS: ADMIT Internal Medicine; ATTEND Internal Medicine
DX: R19.03 Right lower quadrant abdominal swelling, mass and lump (principal); N17.9 Acute kidney failure, unspecified; D50.9 Iron deficiency anemia, unspecified; K40.90 Unilateral inguinal hernia, without obstruction or gangrene, not specified as recurrent; I12.9 Hypertensive chronic kidney disease with stage 1 through stage 4 chronic kidney disease, or unspecified chronic kidney disease; N18.30 Chronic kidney disease, stage 3 unspecified; E87.20 Acidosis, unspecified; D69.6 Thrombocytopenia, unspecified; E11.649 Type 2 diabetes mellitus with hypoglycemia without coma; Z93.4 Other artificial openings of gastrointestinal tract status; Z88.0 Allergy status to penicillin
CPT/HCPCS: 85025 ×2; 80048; 36415 ×2; 83735; 82947 ×5; 80053; 74177; 99285; Q9967; J1815; G0378; J2270

== ENCOUNTER 2023-05-28 16:18 | Emergency (ER) | payer OTHER ==
[2023-05-28] MEDS ORDERED: SIMETHICONE 80 MG CHEWABLE TAB ONE (16:51)
[2023-05-28] MEDS ORDERED: DICYCLOMINE HCL 10 MG CAP ONE (16:51)
[2023-05-28] MEDS ORDERED: NA CHLORIDE 0.9% 1,000 ML ONE (16:51)
[2023-05-28 17:00] LABS: Absolute Lymphocytes (CBC) 0.9 K/uL (0.7-4.9); Hematocrit 26.7 % (36.0-45.0); Lymphocytes % 16.4 % (15.3-44.8); MCV 85.1 fL (80-100); MPV 7.6 fL (7.6-11.3); Platelets 238 thou/uL (152-406); RBC Red Blood Cell Count 3.14 M/uL (3.86-4.86)
[2023-05-28 17:14] LABS: Albumin 2.3 g/dL (3.4-5.0); Bilirubin Total 0.3 mg/dL (0.2-1.0); Potassium 3.4 mEq/L (3.5-5.1); Protein, Total 5.7 g/dL (6.4-8.2)
--- NOTE | 2023-05-28 18:03 | RAD REPORT ---
EXAM DESCRIPTION: CTAbdomen Pelvis W Contrast - 05/28/2023 5:49 pm CLINICAL HISTORY: ABD PAIN COMPARISON: Abdomen Pelvis W Contrast dated 03/27/2023bdomen Pelvis W Contrast dated 03/27/2023; Abdomen Pelvis Wo Contrast dated 03/13/2023 TECHNIQUE: CT of the abdomen and pelvis was performed. All CT scans are performed using dose optimization technique as appropriate and may include automated exposure control or mA/KV adjustment according to patient size. FINDINGS: Lower chest: No acute abnormality. Liver: No acute abnormality or suspicious lesions. Biliary: No biliary ductal dilatation. Stomach: No significant focal abnormality. Duodenum: No significant focal abnormality. Pancreas: No significant abnormality. Spleen: No significant abnormality. Adrenal: No suspicious lesions. Kidney/ureter: No hydronephrosis. No renal calculi. Retroperitoneum: No retroperitoneal adenopathy. Vascular: No aneurysm. Bowel: Circumferential mass at the ascending colon is again identified. No bowel obstruction present. Mild formed stool within the colon.. Formed stool in the distal small bowel suggests slow transit. Peritoneum: No ascites or free air. Bladder: Grossly unremarkable. Reproductive: Increased endometrial fluid. Bones: No acute fracture. Other: n/a IMPRESSION: No acute intra-abdominal or pelvic finding. Mild colonic stool burden but no evidence of bowel obstruction. Circumferential mass in the ascending colon which remains concerning for neoplasm is unchanged. Increased fluid within the endometrial canal. This could be secondary to cervical stenosis. Nonemerge nt pelvic ultrasound could further evaluate.
--- NOTE | 2023-05-28 18:12 | ER ---
Nurse's Notes [facility] Name: Barb Garcia Age: 78 yrs Sex: Female : 1945 Arrival Date: 05/28/2023 Time: 16:18 Bed 3 Private MD: Diagnosis: Gas pain;Hypokalemia Presentation: 05/28 16:23 Chief complaint: EMS states: Abdominal pain x 2 days, constipation since yesterday. VS hb WNL, BGL 204, 20G RAC. Coronavirus screen: At this time, the client does not indicate any symptoms associated with coronavirus-19. Ebola Screen: No symptoms or risks identified at this time. Initial Sepsis Screen: Does the patient meet any 2 criteria? No. Patient's initial sepsis screen is negative. Does the patient have a suspected source of infection? No. Patient's initial sepsis screen is negative. Risk Assessment: Do you want to hurt yourself or someone else? Patient reports no desire to harm self or others. Onset of symptoms was May 26, 2023. 16:23 Method Of Arrival: EMS: [facility] hb 16:23 Acuity: EILEEN 3 hb Historical: - Allergies: 16:25 PENICILLINS; hb - PMHx: 16:25 Diabetes; Hypertension; hb - Immunization history:: Adult Immunizations up to date. - Social history:: Smoking status: Patient denies any tobacco usage or history of. Screenin:35 [facility] ED Fall Risk Assessment (Adult) History of falling in the last 3 months, mb9 including since admission No falls in past 3 months (0 pts) Confusion or Disorientation No (0 pts) Intoxicated or Sedated No (0 pts) Impaired Gait No (0 pts) Mobility Assist Device Used No (0 pt) Altered Elimination No (0 pt) Score/Fall Risk Level 0 - 2 = Low Risk Oriented to surroundings, Maintained a safe environment, Educated pt \T\ family on fall prevention, incl call for assistance when getting out of bed. Abuse screen: Denies threats or abuse. Nutritional screening: No deficits noted. Tuberculosis screening: No symptoms or risk factors identified. Assessment: 16:34 General: Appears in no apparent distress. Behavior is calm, cooperative. Pain: mb9 Complains of pain in abdomen Quality of pain is described as throbbing. Neuro: Caruso Agitation-Sedation Scale (RASS): 0 - Alert and Calm Level of Consciousness is awake, alert, obeys commands, Oriented to person, place, time, situation, Appropriate for age. Cardiovascular: Heart tones S1 S2 present Patient's skin is warm and dry. Respiratory: Airway is patent Respiratory effort is even, unlabored, Respiratory pattern is regular, symmetrical, Breath sounds are clear bilaterally. GI: Abdomen is flat, non-distended, Bowel sounds present X 4 quads. Abd is soft and non tender X 4 quads. Reports constipation, Patient currently denies nausea, vomiting. : No signs and/or symptoms were reported regarding the genitourinary system. EENT: No signs and/or symptoms were reported regarding the EENT system. Derm: Skin is pink, warm \T\ dry. Musculoskeletal: Range of motion: intact in all extremities. 18:05 Reassessment: No changes from previously documented assessment. Patient and/or family mb9 updated on plan of care and expected duration. Pain level reassessed. Patient is alert, oriented x 3, equal unlabored respirations, skin warm/dry/pink. Vital Signs: 16:23 BP 136 / 65; Pulse 80; Resp 17; Temp 97.4(O); Pulse Ox 100% on R/A; Pain 5/10; hb 17:13 BP 156 / 65; Pulse 82; Resp 16; Pulse Ox 100% ; mb9 18:12 BP 155 / 66; Pulse 68; Resp 16; Pulse Ox 100% ; mb9 16:23 Pain Scale: Adult hb ED Course: 16:22 Patient arrived in ED. hb 16:23 Adonis Holt MD is Attending Physician. ec2 16:25 Triage completed. hb 16:25 Arm band placed on. hb 16:25 Placed in gown. Bed in low position. Call light in reach. Side rails up X 1. Client mb9 placed on continuous cardiac and pulse oximetry monitoring. NIBP monitoring applied. 16:35 Stacey Valladares RN is Primary Nurse. mb9 16:36 No provider procedures requiring assistance completed. Maintain EMS IV. Dressing mb9 intact. Good blood return noted. Site clean \T\ dry. Gauge \T\ site: 18 g right AC. 17:51 CT Abd/Pelvis - IV Contrast Only In Process Unspecified. EDMS 17:59 Bed in low position. Call light in reach. Side rails up X2. Provided Education on: NA. ko1 Pulse ox on. NIBP on. Door closed. Noise minimized. 18:12 IV discontinued, intact, bleeding controlled, No redness/swelling at site. Pressure mb9 dressing applied. Administered Medications: 16:48 Drug: NS 0.9% IV 1000 ml IV at 1 bolus Per protocol; 1000 mL bolus Route: IV; Rate: 1 mb9 bolus; Site: right antecubital; 18:13 Follow up: Response: No adverse reaction; IV Status: Completed infusion mb9 16:48 Drug: Dicyclomine PO 20 mg PO once Route: PO; mb9 18:13 Follow up: Response: No adverse reaction mb9 16:48 Drug: Simethicone PO 240 mg PO once Route: PO; mb9 18:12 Follow up: Response: No adverse reaction mb9 Medication: 16:36 VIS not applicable for this client. mb9 Outcome: 18:11 Discharge ordered by . ec2 18:12 Discharged to home via wheelchair, with family, mb9 18:12 Condition: stable 18:12 Discharge instructions given to patient, family, Instructed on discharge instructions, follow up and referral plans. Demonstrated understanding of instructions, follow-up care, medications, Prescriptions given X 1, 18:20 Patient left the ED. mb9 Signatures: Dispatcher [employer] EDJaqueline Brady RN RN hb Oliver, Kathy, RN RN ko1 Stacey Valladares RN RN mb9 Adonis Holt MD MD ec2 Corrections: (The following items were deleted from the chart) 18:12 17:59 BP 174 / 65; Pulse 68bpm; Resp 16bpm; Pulse Ox 100%; ko1 mb9
--- NOTE | 2023-05-28 18:12 | EDPHYS ---
Physician Documentation [facility] Name: Barb Garcia Age: 78 yrs Sex: Female : 1945 Arrival Date: 05/28/2023 Time: 16:18 Bed 3 Private MD: ED Physician Adonis Holt HPI: 05/28 16:32 This 78 yrs old Black Female presents to ER via EMS with complaints of Abdominal Pain. ec2 16:32 Patient arrives today for evaluation of abdominal discomfort. States that she feels ec2 some abdominal pain as well as gas. Reports no issues with nausea or vomiting, has been having diarrheal stools recently. Patient reports no urinary complaints. States that she is taken some Motrin without significant improvement in her symptoms.. Historical: - Allergies: 16:25 PENICILLINS; hb - PMHx: 16:25 Diabetes; Hypertension; hb - Immunization history:: Adult Immunizations up to date. - Social history:: Smoking status: Patient denies any tobacco usage or history of. ROS: 16:32 Constitutional: as per hpi ec2 Exam: 16:32 Constitutional: GEN: NAD Head: atraumatic Eyes: EOMI Ears: External ears are ec2 normal. CV: regular rate LUNGS: no respiratory distress ABD: non-distended, soft, nontender, no guarding, not rigid SKIN: no evidence of rashes MSK: no evidence of trauma NEURO: moves all extremities equally Vital Signs: 16:23 BP 136 / 65; Pulse 80; Resp 17; Temp 97.4(O); Pulse Ox 100% on R/A; Pain 5/10; hb 17:13 BP 156 / 65; Pulse 82; Resp 16; Pulse Ox 100% ; mb9 18:12 BP 155 / 66; Pulse 68; Resp 16; Pulse Ox 100% ; mb9 16:23 Pain Scale: Adult hb MDM: 16:23 Patient medically screened. ec2 16:32 Data reviewed: vital signs. ED course: Patient arrives today for evaluation of ec2 abdominal discomfort. Examination remarkable for well-appearing nontoxic individual is otherwise in no acute distress with a reassuring abdominal examination. Given the patient's age I will obtain lab work as well as CT imaging, will evaluate for processes such as bowel obstruction as well as intra-abdominal infection. Will treat patient's pain with simethicone and dicyclomine.. 17:16 ED course: CBC shows anemia. Metabolic profile shows slight hypokalemia with potassium ec2 of 3.4 and some renal dysfunction with a creatinine of 1.32. GFR 41. When compared to external records, renal function appears baseline for her. Pending CT abdomen pelvis.. 18:11 ED course: CT on pelvis shows stool burden without SBO, known colonic mass as well as ec2 probable cervical stenosis. Instructed her to follow-up with her primary care doctor. Will prescribe simethicone for her gas. Return precautions given. . 05/28 16:32 Order name: CBC with Diff; Complete Time: 17:15 ec2 05/28 16:32 Order name: CMP; Complete Time: 17:15 ec2 05/28 16:32 Order name: CT Abd/Pelvis - IV Contrast Only; Complete Time: 18:08 ec2 Administered Medications: 16:48 Drug: NS 0.9% IV 1000 ml IV at 1 bolus Per protocol; 1000 mL bolus Route: IV; Rate: 1 mb9 bolus; Site: right antecubital; 18:13 Follow up: Response: No adverse reaction; IV Status: Completed infusion mb9 16:48 Drug: Dicyclomine PO 20 mg PO once Route: PO; mb9 18:13 Follow up: Response: No adverse reaction mb9 16:48 Drug: Simethicone PO 240 mg PO once Route: PO; mb9 18:12 Follow up: Response: No adverse reaction mb9 Disposition Summary: 05/28/23 18:11 Discharge Ordered Notes: Location: Home ec2 Condition: Stable ec2 Diagnosis - Gas pain ec2 - Hypokalemia ec2 Followup: ec2 - With: Private Physician - When: - Reason: Re-evaluation by your physician Discharge Instructions: - Discharge Summary Sheet ec2 - Abdominal Pain, Adult ec2 Forms: - Medication Reconciliation Form ec2 - Thank You Letter ec2 - Antibiotic Education ec2 - Prescription Opioid Use ec2 - Patient Portal Instructions ec2 - Leadership Thank You Letter ec2 Prescriptions: - simethicone 180 mg Oral capsule - take 2 capsule ORAL route after meals and at bedtime; 30 capsule; Refills: 0, ec2 Product Selection Permitted Signatures: Dispatcher [employer] EDDE Jaqueline Arauz RN RN hb Breneman, Mary Beth, RN RN mb9 Adonis Holt MD MD ec2
[2023-05-28 18:28] VITALS: TEMP 97.4; O2SAT 100
[2023-05-28 18:30] VITALS: BP 155/66
== END 2023-05-28 18:20 | disposition home or self-care (01) ==
LOC: ER 16:18
DX: R14.1 Gas pain (principal); E87.6 Hypokalemia; E11.9 Type 2 diabetes mellitus without complications; I10 Essential (primary) hypertension; Z88.0 Allergy status to penicillin
CPT/HCPCS: 85025; 36415; 80053; 74177; 96360; 99284; Q9967; J7030